=== PATIENT | female | born 1965 | race Two or more races ===

== ENCOUNTER → 2020-01-03 09:06 | Outpatient (BNVA) | payer OTHER, SELFPAY | PROVIDERS: PCP Internal Medicine; Referring Provider Internal Medicine; Visit Provider Surgery | DX: Z76.89 Persons encountering health services in other specified circumstances (principal) | CPT/HCPCS: 99213 ==

== ENCOUNTER → 2020-01-19 08:18 | Outpatient (BNVA) | payer OTHER, SELFPAY | PROVIDERS: PCP Internal Medicine; Visit Provider Dietitian, Registered | DX: Z76.89 Persons encountering health services in other specified circumstances (principal) ==

== ENCOUNTER → 2020-02-04 13:24 | Outpatient (BNVA) | payer SELFPAY | PROVIDERS: PCP Internal Medicine; Visit Provider Dietitian, Registered | DX: Z76.89 Persons encountering health services in other specified circumstances (principal) ==

== ENCOUNTER → 2020-02-07 08:59 | Outpatient (BNVA) | payer SELFPAY | PROVIDERS: PCP Internal Medicine; Visit Provider Surgery | DX: Z76.89 Persons encountering health services in other specified circumstances (principal) ==

== ENCOUNTER → 2020-03-20 08:05 | Outpatient (BNVA) | payer OTHER, SELFPAY | PROVIDERS: PCP Internal Medicine; Visit Provider Surgery | DX: Z76.89 Persons encountering health services in other specified circumstances (principal) ==

== ENCOUNTER → 2020-03-21 08:15 | Outpatient (BNVA) | payer OTHER, SELFPAY | PROVIDERS: PCP Internal Medicine; Visit Provider Dietitian, Registered | DX: Z76.89 Persons encountering health services in other specified circumstances (principal) ==

== ENCOUNTER → 2020-05-03 08:27 | Outpatient (BNVA) | payer OTHER, SELFPAY | PROVIDERS: PCP Internal Medicine; Visit Provider Surgery ==

== ENCOUNTER 2020-05-12 08:30 | Outpatient (REF) | payer OTHER, SELFPAY ==
[2020-05-12 08:57] LABS: MANUAL DIFF FLAG NO
[2020-05-12 09:02] LABS: Basophils Absolute Auto 0.1 X10*3/uL (0.0-0.2); Basophils Percent Auto 0.9 % (0-2); Eosinophils Absolute Auto 0.2 X10*3/uL (0.0-0.4); Eosinophils Percent Auto 3.3 % (0-4); Hematocrit 44.9 % (37-47); Hemoglobin 14.9 g/dl (12.0-16.0); Imm Gran Abs Auto 0.01 X10*3/uL (0.00-0.03); Imm Gran Pct Auto 0.2 % (0.0-0.4); Lymphocytes Absolute Auto 1.9 X10*3/uL (1.2-4.9); Lymphocytes Percent Auto 33.2 % (20-40); Mean Corpuscular HGB Conc 33.2 g/dl (31.0-35.0); Mean Corpuscular Hemoglobin 29.9 pg (27.0-33.0); Mean Corpuscular Volume 90.2 fL (80-98); Mean Platelet Volume 11.5 fL (9.4-12.3); Monocytes Absolute Auto 0.4 X10*3/uL (0.1-1.2); Monocytes Percent Auto 7.5 % (2-11); Neutrophils Absolute Auto 3.2 X10*3/uL (2.0-8.3); Neutrophils Percent Auto 54.9 % (45-73); Platelet Count 199 X10*3/uL (160-400); Red Blood Count 4.98 X10*6/uL (4.20-5.50); Red Cell Distribution Width 13.1 % (11.0-16.0); White Blood Count 5.8 X10*3/uL (4.8-10.8)
[2020-05-12 09:32] LABS: Estimated Average Glucose 91 mg/dL; Hemoglobin A1c % 4.8 %
[2020-05-12 09:38] LABS: Alanine Aminotransferase 12 U/L (0-31); Albumin Level 4.3 g/dL (3.5-5.0); Alkaline Phosphatase 76 U/L (39-117); Anion Gap 10 (12-20); Aspartate Amino Transferase 16 U/L (5-31); Bilirubin Total 0.6 mg/dL (0.0-1.0); Blood Urea Nitrogen 24 mg/dL (9-16); C Reactive Protein 0.24 mg/dL (< or = 0.50); Calcium 9.5 mg/dL (8.4-10.2); Carbon Dioxide 31 mmol/L (22-29); Chloride 105 mmol/L (96-108); Cholesterol 186 mg/dL; Estimated Glomerular Filt Rate > 60; Glucose Random 87 mg/dL (60-115); HDL Cholesterol 68 mg/dL; LDL Cholesterol Calculated 108 mg/dl; Potassium 4.1 mmol/L (3.3-5.1); Sodium 142 mmol/L (135-145); Total Protein 7.3 g/dL (6.5-8.0); Triglycerides 54 mg/dL
[2020-05-12 10:00] LABS: Ferritin 321 ng/mL (10-250); Vitamin D 25-OH Total 48.4 ng/mL (>30)
[2020-05-12 10:11] LABS: Folate > 20.0 ng/mL (> or = 4.0); Vitamin B12 1380 pg/mL (200-900)
[2020-05-13 05:57] LABS: Insulin Level Total 5.5 uIU/mL
[2020-05-15 16:47] LABS: Calcium (PTHI) 9.7 mg/dL (8.6-10.4); PTHI 69 pg/mL (14-64)
[2020-05-16 00:12] LABS: Zinc 73 mcg/dL (60-130)
[2020-05-17 10:22] LABS: Vitamin B1 19 nmol/L (8-30)
[2020-05-17 21:06] LABS: Vitamin A 46 mcg/dL (38-98)
== END 2020-05-12 08:31 | disposition home or self-care (01) ==
LOC: HO.LAB 08:30
PROVIDERS: Visit Provider Surgery
DX: E66.9 Obesity, unspecified (principal); K90.9 Intestinal malabsorption, unspecified; Z68.31 Body mass index [BMI] 31.0-31.9, adult
CPT/HCPCS: 36415; 80053; 80061; 82306; 82607; 82728; 82746; 83036; 83525; 83970; 84425; 84443; 84590; 84630; 85025; 86140

== ENCOUNTER → 2020-08-08 11:52 | Outpatient (BNVA) | payer OTHER, SELFPAY | PROVIDERS: PCP Internal Medicine; Visit Provider Physician Assistant | DX: E66.9 Obesity, unspecified (principal); R10.9 Unspecified abdominal pain; Z90.3 Acquired absence of stomach [part of] | CPT/HCPCS: 99212 ==

== ENCOUNTER → 2020-08-15 08:15 | Outpatient (BNVA) | payer OTHER, SELFPAY | PROVIDERS: PCP Internal Medicine; Visit Provider Physician Assistant | DX: K21.9 Gastro-esophageal reflux disease without esophagitis (principal); E66.9 Obesity, unspecified; Z68.32 Body mass index [BMI] 32.0-32.9, adult ==

== ENCOUNTER 2020-09-20 15:40 | Outpatient (REF) | payer OTHER, SELFPAY ==
[2020-09-20 16:23] LABS: MANUAL DIFF FLAG NO
[2020-09-20 16:28] LABS: Basophils Absolute Auto 0.1 X10*3/uL (0.0-0.2); Basophils Percent Auto 0.6 % (0-2); Eosinophils Absolute Auto 0.1 X10*3/uL (0.0-0.4); Eosinophils Percent Auto 1.7 % (0-4); Hematocrit 43.6 % (37-47); Hemoglobin 14.6 g/dl (12.0-16.0); Imm Gran Abs Auto 0.03 X10*3/uL (0.00-0.03); Imm Gran Pct Auto 0.4 % (0.0-0.4); Lymphocytes Absolute Auto 1.8 X10*3/uL (1.2-4.9); Lymphocytes Percent Auto 22.8 % (20-40); Mean Corpuscular HGB Conc 33.5 g/dl (31.0-35.0); Mean Corpuscular Hemoglobin 29.9 pg (27.0-33.0); Mean Corpuscular Volume 89.3 fL (80-98); Monocytes Absolute Auto 0.5 X10*3/uL (0.1-1.2); Monocytes Percent Auto 6.4 % (2-11); Neutrophils Absolute Auto 5.5 X10*3/uL (2.0-8.3); Neutrophils Percent Auto 68.1 % (45-73); Platelet Count 226 X10*3/uL (160-400); Red Blood Count 4.88 X10*6/uL (4.20-5.50); Red Cell Distribution Width 13.8 % (11.0-16.0); White Blood Count 8.1 X10*3/uL (4.8-10.8)
[2020-09-20 16:41] LABS: Estimated Average Glucose 97 mg/dL
[2020-09-20 16:52] LABS: Anion Gap 12 (12-20); Blood Urea Nitrogen 28 mg/dL (9-16); Calcium 9.6 mg/dL (8.4-10.2); Carbon Dioxide 24 mmol/L (22-29); Chloride 108 mmol/L (96-108); Estimated Glomerular Filt Rate > 60; Glucose Random 104 mg/dL (60-115); Potassium 4.1 mmol/L (3.3-5.1); Rheumatoid Factor < 15.0 IU/mL (<15.0); Sodium 140 mmol/L (135-145)
[2020-09-20 16:54] LABS: C Reactive Protein 0.36 mg/dL (< or = 0.50); Cholesterol 168 mg/dL; HDL Cholesterol 61 mg/dL; Iron 40 mcg/dL (30-160); LDL Cholesterol Calculated 92 mg/dl; Percent Iron Saturation 21 % (15-50); Total Iron Binding Capacity 191 mcg/dL (228-428); Triglycerides 75 mg/dL; Unsaturated Iron Binding 151 ug/dL
[2020-09-20 17:15] LABS: Ferritin 280 ng/mL (10-250); TSH reflex Free T4 0.54 uIU/mL (0.32-4.0); Vitamin D 25-OH Total 49.7 ng/mL (>30)
[2020-09-20 17:40] LABS: Erythrocyte Sedimentation Rate 12 MM/HR (0-20)
[2020-09-20 17:43] LABS: Folate > 20.0 ng/mL (> or = 4.0); Vitamin B12 1542 pg/mL (200-900)
[2020-09-21 09:01] LABS: Lyme Abs Screen <0.90 index
[2020-09-21 09:27] LABS: Insulin Level Total 19.2 uIU/mL
[2020-09-21 13:32] LABS: Anti Nuclear Antibody Screen NEGATIVE (NEGATIVE); Calcium (PTHI) 9.7 mg/dL (8.6-10.4); PTHI 73 pg/mL (14-64)
[2020-09-23 07:17] LABS: Zinc 64 mcg/dL (60-130)
[2020-09-25 17:33] LABS: Vitamin A 46 mcg/dL (38-98)
[2020-09-27 05:57] LABS: Vitamin B1 45 nmol/L (8-30)
== END 2020-09-20 15:41 | disposition home or self-care (01) ==
LOC: HO.LAB 15:40
PROVIDERS: Physician Assistant; PCP Internal Medicine; Visit Provider Psychiatry & Neurology Neurology
DX: R52 Pain, unspecified (principal); E66.9 Obesity, unspecified; Z68.35 Body mass index [BMI] 35.0-35.9, adult; Z90.3 Acquired absence of stomach [part of]; Z98.84 Bariatric surgery status
CPT/HCPCS: 36415; 80048; 80061; 82306; 82550; 82607; 82728; 82746; 83036; 83525; 83540; 83970; 84425; 84443; 84590; 84630; 85025; 85652; 86038; 86039; 86140; 86431; 86617; 86618

== ENCOUNTER → 2020-09-27 15:23 | Outpatient (BNVA) | payer OTHER, SELFPAY | PROVIDERS: PCP Internal Medicine; Referring Provider Internal Medicine; Visit Provider Physician Assistant | DX: K21.9 Gastro-esophageal reflux disease without esophagitis (principal); E66.9 Obesity, unspecified; Z68.32 Body mass index [BMI] 32.0-32.9, adult ==

== ENCOUNTER → 2020-12-01 14:31 | Outpatient (BNVA) | payer OTHER, SELFPAY | PROVIDERS: PCP Internal Medicine; Referring Provider Internal Medicine; Visit Provider Physician Assistant | DX: E66.9 Obesity, unspecified (principal); K90.9 Intestinal malabsorption, unspecified; Z68.32 Body mass index [BMI] 32.0-32.9, adult; Z90.3 Acquired absence of stomach [part of]; J30.81 Allergic rhinitis due to animal (cat) (dog) hair and dander; Z91.041 Radiographic dye allergy status; Z88.0 Allergy status to penicillin; Z91.018 Allergy to other foods; Z71.3 Dietary counseling and surveillance | CPT/HCPCS: 99212 ==

== ENCOUNTER → 2021-03-16 11:18 | Outpatient (BNVA) | payer OTHER, SELFPAY | PROVIDERS: PCP Internal Medicine; Referring Provider Internal Medicine; Visit Provider Physician Assistant | DX: E66.9 Obesity, unspecified (principal); Z68.35 Body mass index [BMI] 35.0-35.9, adult; Z90.3 Acquired absence of stomach [part of] | CPT/HCPCS: 99212 ==

== ENCOUNTER → 2021-06-27 16:15 | Outpatient (BNVA) | payer OTHER, SELFPAY | PROVIDERS: PCP Internal Medicine; Referring Provider Internal Medicine; Visit Provider Physician Assistant | DX: E66.9 Obesity, unspecified (principal); Z71.3 Dietary counseling and surveillance; Z90.3 Acquired absence of stomach [part of]; R11.2 Nausea with vomiting, unspecified ==

== ENCOUNTER 2021-06-28 15:52 | Outpatient (REF) | payer OTHER, SELFPAY ==
[2021-06-28 16:56] LABS: Estimated Average Glucose 97 mg/dL
[2021-06-28 17:21] LABS: Insulin 7 uU/mL (2-29); Vitamin D 25-OH Total 36.3 ng/mL (>30)
[2021-06-28 17:34] LABS: Folate 14.7 ng/mL (> or = 4.0); Vitamin B12 1063 pg/mL (200-900)
[2021-06-29 14:32] LABS: Calcium (PTHI) 9.5 mg/dL (8.6-10.4); PTHI 127 pg/mL (16-77)
[2021-07-04 10:46] LABS: Vitamin A 44 mcg/dL (38-98)
[2021-07-05 16:36] LABS: Vitamin B1 11 nmol/L (8-30)
== END 2021-06-28 15:53 | disposition home or self-care (01) ==
LOC: HO.LAB 15:52
PROVIDERS: PCP Internal Medicine; Visit Provider Physician Assistant
DX: R11.2 Nausea with vomiting, unspecified (principal); Z90.3 Acquired absence of stomach [part of]
CPT/HCPCS: 36415; 82306; 82607; 82746; 83036; 83525; 83970; 84425; 84590

== ENCOUNTER → 2022-03-27 13:02 | Outpatient (BNVA) | payer OTHER, SELFPAY | PROVIDERS: PCP Internal Medicine; Visit Provider Physician Assistant Surgical | DX: E66.9 Obesity, unspecified (principal); Z90.3 Acquired absence of stomach [part of]; Z68.38 Body mass index [BMI] 38.0-38.9, adult | CPT/HCPCS: 99212 ==

== ENCOUNTER 2022-04-24 08:53 | Outpatient (REF) | payer OTHER, SELFPAY ==
[2022-04-24 09:24] LABS: MANUAL DIFF FLAG NO
[2022-04-24 10:34] LABS: Basophils Absolute Auto 0.1 X10*3/uL (0.0-0.2); Basophils Percent Auto 1.1 % (0-2); Eosinophils Absolute Auto 0.2 X10*3/uL (0.0-0.4); Hemoglobin 14.4 g/dl (12.0-16.0); Imm Gran Abs Auto 0.02 X10*3/uL (0.00-0.03); Imm Gran Pct Auto 0.3 % (0.0-0.4); Lymphocytes Absolute Auto 2.2 X10*3/uL (1.2-4.9); Lymphocytes Percent Auto 34.1 % (20-40); Mean Corpuscular HGB Conc 33.5 g/dl (31.0-35.0); Mean Corpuscular Hemoglobin 29.8 pg (27.0-33.0); Mean Corpuscular Volume 88.8 fL (80.0-98.0); Mean Platelet Volume 11.5 fL (9.4-12.3); Monocytes Absolute Auto 0.5 X10*3/uL (0.1-1.2); Monocytes Percent Auto 7.4 % (2-11); Neutrophils Absolute Auto 3.5 x10*3/uL (2.0-8.3); Neutrophils Percent Auto 54.1 % (45-73); Platelet Count 165 X10*3/uL (160-400); Red Blood Count 4.84 X10*6/uL (4.20-5.50); Red Cell Distribution Width 13.6 % (11.0-16.0); White Blood Count 6.4 X10*3/uL (4.8-10.8)
[2022-04-24 10:48] LABS: Estimated Average Glucose 100 mg/dL; Hemoglobin A1c % 5.1 %
[2022-04-24 11:14] LABS: Alanine Aminotransferase 14 U/L (0-31); Albumin Level 3.9 g/dL (3.5-5.0); Alkaline Phosphatase 76 U/L (39-117); Anion Gap 14 (12-20); Aspartate Amino Transferase 14 U/L (5-31); Bilirubin Total 0.7 mg/dL (0.0-1.0); Blood Urea Nitrogen 20 mg/dL (9-16); C Reactive Protein 0.28 mg/dL (< or = 0.50); Calcium 8.9 mg/dL (8.4-10.2); Carbon Dioxide 26 mmol/L (22-29); Chloride 107 mmol/L (96-108); Cholesterol 178 mg/dL; Estimated Glomerular Filt Rate > 60; Glucose Random 87 mg/dL (60-115); HDL Cholesterol 48 mg/dL; Iron 80 mcg/dL (30-160); LDL Cholesterol Calculated 108 mg/dl; Percent Iron Saturation 38 % (15-50); Potassium 3.8 mmol/L (3.3-5.1); Sodium 143 mmol/L (135-145); Total Iron Binding Capacity 209 mcg/dL (228-428); Total Protein 6.5 g/dL (6.5-8.0); Triglycerides 110 mg/dL; Unsaturated Iron Binding 129 ug/dL
[2022-04-24 11:31] LABS: Ferritin 152 ng/mL (10-250); Insulin 15 uU/mL (2-29); TSH reflex Free T4 2.17 uIU/mL (0.32-4.0); Vitamin D 25-OH Total 32.7 ng/mL (>30)
[2022-04-24 11:46] LABS: Folate 13.2 ng/mL (> or = 4.0); Vitamin B12 1249 pg/mL (200-900)
[2022-04-25 15:39] LABS: Calcium (PTHI) 9.3 mg/dL (8.6-10.4); PTHI 98 pg/mL (16-77)
[2022-04-27 23:38] LABS: Zinc 72 mcg/dL (60-130)
[2022-04-28 08:24] LABS: Vitamin B1 11 nmol/L (8-30)
[2022-04-30 21:39] LABS: Vitamin A 44 mcg/dL (38-98)
== END 2022-04-24 08:54 | disposition home or self-care (01) ==
LOC: HO.LAB 08:53
PROVIDERS: PCP Internal Medicine; Visit Provider Physician Assistant Surgical
DX: Z90.3 Acquired absence of stomach [part of] (principal)
CPT/HCPCS: 36415; 80053; 80061; 82306; 82607; 82728; 82746; 83036; 83525; 83540; 83970; 84425; 84443; 84590; 84630; 85025; 86140

== ENCOUNTER → 2022-06-11 14:10 | Outpatient (BNVA) | payer OTHER, SELFPAY | PROVIDERS: PCP Internal Medicine; Visit Provider Physician Assistant Surgical | DX: E66.9 Obesity, unspecified (principal); Z68.38 Body mass index [BMI] 38.0-38.9, adult; Z98.84 Bariatric surgery status; Z90.3 Acquired absence of stomach [part of] | CPT/HCPCS: 99212 ==

== ENCOUNTER 2022-07-12 08:11 | Outpatient (REF) | payer OTHER, SELFPAY ==
--- NOTE | ~2022-07-12 | FL_ITS ---
EXAMINATION: XR FLUOROSCOPY UPPER GI WITH AIR CLINICAL INFORMATION: Sleeve gastrectomy. COMPARISON: 01/27/2019. TECHNIQUE: Air-contrast upper GI examination. FINDINGS: Patient drank thin and thick barium as well as a half-inch diameter barium tablet without difficulty. There is normal apposition of the vocal cords while saying E. There is normal elevation of the soft palate while saying candy. There is no evidence of nasopharyngeal reflux or tracheal aspiration. No Zenker's diverticulum or significant cricopharyngeal hypertrophy was appreciated. No persistent stricture or mucosal abnormality of the esophagus was identified. There is a small hiatal hernia present. There was noted to be some mild transient gastroesophageal reflux within the distal third of the esophagus which cleared rapidly. Occasional tertiary contractions were present. The stomach distended well without evidence of mucosal abnormality or abnormal mass. No extravasation of contrast identified. No filling of the excluded portion of the stomach about the greater curvature. There was no delay in gastric emptying. The duodenal bulb and sweep appeared unremarkable. FLUOROSCOPY TIME: 1.6 minutes. DOSE AREA PRODUCT: 18.380 Gy-cm2 (connor-centimeter squared). FL/FL upper GI w air IMPRESSION: Status post sleeve gastrectomy without evidence of filling of the excluded portion of the stomach. No mucosal abnormality involving the esophagus, stomach, or duodenum identified. Small hiatal hernia with minimal gastroesophageal reflux which cleared rapidly.
== END 2022-07-12 08:12 | disposition home or self-care (01) ==
LOC: HO.XRAY 08:11
PROVIDERS: PCP Internal Medicine; Visit Provider Physician Assistant Surgical
DX: R63.2 Polyphagia (principal); Z90.3 Acquired absence of stomach [part of]
CPT/HCPCS: 74246

== ENCOUNTER → 2022-07-18 14:39 | Outpatient (BNVA) | payer OTHER, SELFPAY | PROVIDERS: PCP Internal Medicine; Visit Provider Internal Medicine Endocrinology, Diabetes & Metabolism | DX: E34.9 Endocrine disorder, unspecified (principal) | CPT/HCPCS: 99202 ==

== ENCOUNTER → 2022-07-22 10:56 | Outpatient (BNVA) | payer OTHER, SELFPAY | PROVIDERS: PCP Internal Medicine; Visit Provider Physician Assistant Surgical ==

== ENCOUNTER 2022-07-26 10:45 | Outpatient (REF) | payer OTHER, SELFPAY ==
[2022-07-26 14:38] LABS: Creatinine, mg/dL 149.48
[2022-07-26 21:10] LABS: Creatinine, 24Hr Urine 1.5 G/Day (1.0-2.0); Total Volume 24 Hour Urine 1025 mL
[2022-07-27 18:03] LABS: Calcium, 24 Hr Urine 185 mg/24 h; Calcium/Creatinine Ratio 134 mg/g creat (30-275); Creatinine 24Hr Urine 1.37 g/24 h (0.50-2.15)
== END 2022-07-26 10:46 | disposition home or self-care (01) ==
LOC: HO.10HDL 10:45
PROVIDERS: Visit Provider Internal Medicine Endocrinology, Diabetes & Metabolism
DX: E34.9 Endocrine disorder, unspecified (principal)
CPT/HCPCS: 82340; 82570

== ENCOUNTER → 2022-08-21 10:53 | Outpatient (BNVA) | payer MEDICARE, MEDICAID, SELFPAY | PROVIDERS: PCP Internal Medicine; Visit Provider Dietitian, Registered | DX: E66.9 Obesity, unspecified (principal); Z68.39 Body mass index [BMI] 39.0-39.9, adult | CPT/HCPCS: 97803 ==

== ENCOUNTER → 2022-09-20 08:53 | Outpatient (BNVA) | payer MEDICARE, MEDICAID, OTHER, SELFPAY | PROVIDERS: PCP Internal Medicine; Visit Provider Physician Assistant | DX: M54.12 Radiculopathy, cervical region (principal) | CPT/HCPCS: 99202 ==

== ENCOUNTER → 2022-09-30 15:01 | Outpatient (BNVA) | payer MEDICARE, MEDICAID, OTHER, SELFPAY | PROVIDERS: PCP Internal Medicine; Visit Provider Physician Assistant Surgical ==

== ENCOUNTER → 2022-10-03 10:47 | Outpatient (BNVA) | payer MEDICARE, MEDICAID, OTHER, SELFPAY | PROVIDERS: PCP Internal Medicine; Visit Provider Dietitian, Registered | DX: E66.9 Obesity, unspecified (principal) | CPT/HCPCS: 97803 ==

== ENCOUNTER → 2022-11-05 08:06 | Outpatient (BNVA) | payer MEDICARE, MEDICAID, OTHER, SELFPAY | PROVIDERS: PCP Internal Medicine; Visit Provider Physician Assistant Surgical ==

== ENCOUNTER 2022-11-06 10:48 | Outpatient (AMB) | payer MEDICARE, MEDICAID, OTHER, SELFPAY ==
--- NOTE | 2022-11-06 10:37 | A.OFFVIS_ITS ---
Intake VS Expanded 11/06/22 10:50 Height 5 ft 3 in Weight 219 lb BMI 38.8 Intake Visit Reasons: VIDEO PO LSG 03/23/19 Information Systems Specialist Required: No Allergies cat dander Allergy (Severe, Verified 07/18/22 14:47) Sneezing dog dander Allergy (Severe, Verified 07/18/22 14:47) Sneezing Iodinated Contrast Media [IV CONTRAST] Allergy (Unknown, Verified 07/18/22 14:47) SWELLING,SHAKING lettuce [LETTUCE] Allergy (Unknown, Verified 07/18/22 14:47) HIVES mushroom [MUSHROOMS] Allergy (Unknown, Verified 07/18/22 14:47) HIVES Penicillins [PENICILLINS] Allergy (Unknown, Verified 07/18/22 14:47) SWELLING tomato [TOMATO] Adverse Reaction (Unknown, Verified 07/18/22 14:47) HIVES onions Allergy (Unknown, Uncoded 07/18/22 14:47) Unknown HPI Nutrition Presentation Details LSG 03/23/2019 Lowest weight in [facility] EMR documented on (03/19/20) at 180# - previous weights are located in [facility] Patient has had steady weight regain over the last few years due to increased hunger and increased eating Last weight 09/30 222# current weight 219# Reason for consult elevated BMI Diet Assmnt Details Started the below right after our last nutrition appt. Patient states she is consistent 8-9am Premade premier shake 1-1:30pm Premade premier shake 3-4pm protein bar dinner 5:30-6pm fish and broccoli 4 bite fish, vegetable Hydration: drinking water only about 5 bottles per day coffee once per week Exercise 2x per week going to the gym elliptical treadmill and rowing machine - 1hour 15 minutes weights 2 days Dietary counseling reduction Diagnosis Nutrition problem #1 overweight/obesity As related to (etiology) #1 excess energy intake and physical inactivity As evidenced by (sign/symptom) #1 high BMI Monitoring/Goals Nutrition problem monitoring total energy intake, level of knowledge/skill, total PRO intake, total CHO intake, weight and oral fluids Outcome progress progressing Learning/Education Readiness to learn good Stages of change relapse Most Recent Diabetes Results: No Data to Display [facility] Medical History (Updated 09/20/22 @ 09:33 by CIRILO Anna) COVID-19 Hx of sleep apnea Intestinal malabsorption Obesity Surgical History History of cervical cerclage History of endometrial ablation History of sleeve gastrectomy Family History Father No problems noted. Mother No problems noted. Brother No problems noted. Brother No problems noted. Sister No problems noted. Sister No problems noted. Sister No problems noted. Sister No problems noted. Sister No problems noted. Sister No problems noted. Daughter No problems noted. Social History Alcohol intake: never Patient Tobacco Use Status: Never used Tobacco Assessment & Plan Assessment & Plan (1) Obesity (BMI 30-39.9): Code(s): E66.9 - Obesity, unspecified Patient Instructions: encouraged she continue to be consistent with high protein diet. recommended including about 30 mins cardio in with her weight training days. discuss medications potential to promote weight gain with her mental health provider. f/u 02/06 at 10:30 Telehealth Telehealth Location of provider rendering services: practice address Location of patient: address on file Patient Identification confirmed using: Name, : Yes Telehealth method: video Patient verbally consented to treatment: Yes Patient verbally consented to billing insurance company: Yes Patient informed of any privacy concerns related to visit: Yes Minutes spent on Phone/Video with Pt.: 20 Coding Level of Care Code Nutr Indiv Subseq (28162) Diagnoses Obesity (BMI 30-39.9) E66.9 Time Spent (min) 20
[2022-11-06 10:50] VITALS: BMI 38.8
== END 2022-11-06 10:50 | disposition home or self-care (01) ==
LOC: HO.HBS 10:48
PROVIDERS: PCP Internal Medicine; Visit Provider Dietitian, Registered
DX: E66.9 Obesity, unspecified (principal)

== ENCOUNTER → 2022-11-06 10:48 | Outpatient (BNVA) | payer MEDICARE, MEDICAID, OTHER, SELFPAY | PROVIDERS: PCP Internal Medicine; Visit Provider Dietitian, Registered | DX: E66.9 Obesity, unspecified (principal); Z68.38 Body mass index [BMI] 38.0-38.9, adult | CPT/HCPCS: 97803 ==

== ENCOUNTER 2022-12-17 08:14 | Outpatient (AMB) | payer OTHER, MEDICAID, SELFPAY ==
--- NOTE | 2022-12-17 08:16 | A.OFFVIS_ITS ---
Intake Vital Signs 12/17/22 08:19 Height 5 ft 3 in Weight 227 lb 8.273 oz BMI 40.3 BP 108/84 Blood Pressure Location Lt brachial Position Sitting Pulse 72 Pulse Source Pulse Oximeter Intake Visit Reasons: hyperparathyroidism/ Confirmed Intake Note: Patient present for Hyperparathyroidism follow up visit. Director Safety Required: No Accompanied by: Self / Same As Patient Allergies cat dander Allergy (Severe, Verified 12/17/22 08:23) Sneezing dog dander Allergy (Severe, Verified 12/17/22 08:23) Sneezing Iodinated Contrast Media [IV CONTRAST] Allergy (Unknown, Verified 12/17/22 08:23) SWELLING,SHAKING lettuce [LETTUCE] Allergy (Unknown, Verified 12/17/22 08:23) HIVES mushroom [MUSHROOMS] Allergy (Unknown, Verified 12/17/22 08:23) HIVES Penicillins [PENICILLINS] Allergy (Unknown, Verified 12/17/22 08:23) SWELLING tomato [TOMATO] Adverse Reaction (Unknown, Verified 12/17/22 08:23) HIVES onions Allergy (Unknown, Uncoded 07/18/22 14:47) Unknown Medication List - Last Reconciled 12/17/22 by Conner Candelaria MD albuterol sulfate 2.5 mg inhalation Q4H albuterol sulfate 90 mcg/actuation 2 puffs inhalation Q6H PRN aripiprazole (Abilify) 20 mg PO DAILY [id number] [id number] mg 2 caps PO Q4H PRN calcium carbonate (Antacid (calcium carbonate)) 215 mg PO BID clonazepam 1 mg PO TID docusate sodium 100 mg PO DAILY duloxetine 60 mg PO DAILY ipratropium-albuterol 0.5 mg-3 mg(2.5 mg base)/3 mL mL inhalation methocarbamol 750 mg PO DAILY PRN [id number]-[id number]-vit K 45 mg iron- 800 mcg-120 mcg (Bariatric Multivitamins) caps PO oxybutynin chloride ER 10 mg PO DAILY valacyclovir 500 mg PO DAILY ziprasidone HCl 20 mg PO BID zolpidem 6.25 mg PO HPI HPI Comments History of Present Illness Details 57 YO F with PMHx bariatric surgery who is seen in consultation at the request of PCP for increased PTH First noted to have high PTH 1 mo .had bariatric surgery gastric sleeve 2019 Currently using Calcium supplement 215 mg BID . Not Takes IU of Vitamin D daily. Currently not using HCTZ. Kidney stones: No Osteoporosis: No History of [place] use: No Biotin use: No Family history of high calcium or kidney stones: No Renal imaging: [] DXA: Labs: Currently on calcium and vitamin-D supplementation [facility] Medical History (Updated 09/20/22 @ 09:33 by CIRILO Anna) Hx of sleep apnea COVID-19 Intestinal malabsorption Obesity Surgical History History of sleeve gastrectomy History of endometrial ablation History of cervical cerclage Family History Father No problems noted. Mother No problems noted. Brother No problems noted. Brother No problems noted. Sister No problems noted. Sister No problems noted. Sister No problems noted. Sister No problems noted. Sister No problems noted. Sister No problems noted. Daughter No problems noted. Social History Alcohol intake: never Patient Tobacco Use Status: Never used Tobacco Physical Exam Vital Signs: Last Vital Signs Pulse 72 12/17/22 08:19 BP 108/84 12/17/22 08:19 BMI result Body Mass Index 40.3 Assessment & Plan Assessment & Plan (1) Increased PTH level: Code(s): E34.9 - Endocrine disorder, unspecified Plan: This 56-year-old female found to have an elevated PTH most likely secondary hyperparathyroidism status post bariatric surgery. Other possibility includes the presence of normocalcium at primary hyperparathyroid. Rule out hypercalciuria Plan is to recheck calcium, albumin, PTH, 25 hydroxyvitamin. If PTH remains elevated may repeat at [facility] to ensure accuracy. Orders: Orders PTHI Today E34.9 - Endocrine disorder, unspecified Vitamin D 25-OH Total Today E34.9 - Endocrine disorder, unspecified Albumin Level Today E34.9 - Endocrine disorder, unspecified Coding Level of Care Code Est Pt Level 3 (55415) Diagnoses Increased PTH level E34.9
[2022-12-17 08:19] VITALS: BP 108/84; PULSE 72; BMI 40.3
== END 2022-12-17 08:45 | disposition home or self-care (01) ==
PROVIDERS: PCP Internal Medicine; Visit Provider Internal Medicine Endocrinology, Diabetes & Metabolism
DX: E34.9 Endocrine disorder, unspecified (principal)
CPT/HCPCS: 99213

== ENCOUNTER → 2022-12-17 08:14 | Outpatient (BNVA) | payer MEDICARE, SELFPAY | PROVIDERS: PCP Internal Medicine; Visit Provider Internal Medicine Endocrinology, Diabetes & Metabolism ==

== ENCOUNTER 2022-12-17 08:51 | Outpatient (REF) | payer MEDICARE, SELFPAY ==
[2022-12-17 11:32] LABS: Vitamin D 25-OH Total 51.1 ng/mL (>30)
[2022-12-18 17:58] LABS: Calcium (PTHI) 9.4 mg/dL (8.6-10.4); PTHI 62 pg/mL (16-77)
== END 2022-12-17 08:52 | disposition home or self-care (01) ==
LOC: HO.10HDL 08:51
PROVIDERS: Visit Provider Internal Medicine Endocrinology, Diabetes & Metabolism
DX: E34.9 Endocrine disorder, unspecified (principal); Z79.899 Other long term (current) drug therapy
CPT/HCPCS: 36415; 82040; 82306; 83970; 99212